=== PATIENT | male | born 2000 | race Caucasian/White ===

== ENCOUNTER 2023-01-28 12:19 | Emergency (ER) | payer BC ==
[2023-01-28] MEDS ORDERED: Boostrix 0.5 ML (Tdap) VIAL (>/=7 yrs of age) ONE (14:06)
[2023-01-28] MEDS ORDERED: Ibuprofen 200 MG TAB ONE (14:06)
== END 2023-01-28 15:54 | disposition home or self-care (01) ==
LOC: CSHERS 12:19
DX: S00.81XA Abrasion of other part of head, initial encounter (principal); S40.812A Abrasion of left upper arm, initial encounter; S80.812A Abrasion, left lower leg, initial encounter; V20.49XA Other motorcycle driver injured in collision with pedestrian or animal in traffic accident, initial encounter
CPT/HCPCS: 70450; 70486; 90471; 90715